=== PATIENT | female | born 1945 | race Caucasian/White ===

== ENCOUNTER → 2017-05-27 13:11 | Outpatient (POV) | payer MEDICARE, SELFPAY | PROVIDERS: Visit Provider Internal Medicine Nephrology | DX: Z00.00 Encounter for general adult medical examination without abnormal findings (principal) ==

== ENCOUNTER → 2017-10-14 14:25 | Outpatient (POV) | payer MEDICARE, SELFPAY | PROVIDERS: Visit Provider Internal Medicine Nephrology | DX: Z00.00 Encounter for general adult medical examination without abnormal findings (principal) ==

== ENCOUNTER 2018-01-22 17:23 | Inpatient (IN) ==
--- NOTE | 2018-01-22 18:36 | Progress Note ---
Internal Medicine - PN: Subj *Date: 01/22/18 *Time: 18:34 Interval history: See H&P from [facility]. Patient with lung carcinoma under radiation treatment is admitted due to not feeling well, and with poor appetite and diarrhea. Seems to be dehydrated. Exam Vital signs and Labs for Last 24 Hours: Temp Pulse Resp BP Pulse Ox 98.1 F 79 20 133/55 98 01/22/18 17:58 01/22/18 17:58 01/22/18 17:58 01/22/18 17:58 01/22/18 17:58 I & O for Last 24 hours: Intake & Output 01/20/18 01/21/18 01/22/18 01/23/18 11:59 11:59 11:59 11:59 Weight 112 lb 7 oz Assessment and Plan (1) Dehydration Current visit: Yes Status: Acute Category: Medical Code(s): E86.0 - Dehydration (2) Lung cancer Current visit: Yes Status: Acute Category: Medical Code(s): C34.90 - Malignant neoplasm of unspecified part of unspecified bronchus or lung (3) Renal insufficiency Current visit: Yes Status: Acute Category: Medical Code(s): N28.9 - Disorder of kidney and ureter, unspecified - Assessment and plan all Dx Assessment and Plan for all problems:: See orders. IV fluids.
[2018-01-22 18:46] LABS: Basophils % 0.4 % (0.1-2.0); Eosinophils % 0.2 % (0.1-12.0); Hematocrit 33.3 % (37.0-47.0); Lymphocytes # 1.7 K/mm3 (0.7-4.5); Mean Corpuscular HGB Conc 30.1 g/dL (31.8-35.4); Mean Corpuscular Hemoglobin 30.9 pg (27.0-31.2); Mean Corpuscular Volume 102.6 fl (81-99); Mean Platelet Volume 7.8 fl (7.4-10.4); Monocytes # 0.7 K/mm3 (0.1-1.0); Monocytes % 7.4 % (1.7-9.3); Platelet Count 405 K/mm3 (142-424); Red Blood Count 3.25 M/mm3 (4.20-5.40); Red Cell Distribution Width 16.2 % (11.5-17.5); White Blood Count 9.4 K/mm3 (4.8-10.8)
[2018-01-22 19:08] LABS: Albumin Level 3.1 gm/dL (3.4-5.0); Albumin/Globulin Ratio 0.6 (1.1-1.8); Anion Gap 22.4 mEq/L (5-15); Bilirubin,Total 0.3 mg/dL (0.2-1.0); Calcium 7.7 mg/dL (8.5-10.1); Globulin 4.9 gm/dl (1.3-3.2); Potassium 3.4 mmoL/L (3.5-5.1); Thyroid Stimulating Hormone 1.01 uIU/ml (0.358-3.740)
--- NOTE | 2018-01-22 19:40 | Progress Note ---
Internal Medicine - PN: Subj *Date: 01/22/18 *Time: 19:38 Interval history: The patient is in acute upon chronic renal failure with markedly elevated BUN and creatinine. Exam Vital signs and Labs for Last 24 Hours: Temp Pulse Resp BP Pulse Ox 98.1 F 79 20 133/55 98 01/22/18 17:58 01/22/18 17:58 01/22/18 17:58 01/22/18 17:58 01/22/18 17:58 Laboratory Results - last 24 hr 01/22/18 18:15: WBC 9.4, RBC 3.25 L, Hgb 10.0 L, Hct 33.3 L, MCV 102.6 H, MCH 30.9, MCHC 30.1 L, RDW 16.2, Plt Count 405, MPV 7.8, Neut % (Auto) 74.0, Lymph % (Auto) 18.0, [place] % (Auto) 7.4, Eos % (Auto) 0.2, Baso % (Auto) 0.4, Neut # (Auto) 7.0, Lymph # (Auto) 1.7, [place] # (Auto) 0.7, Eos # (Auto) 0.0, Baso # (Auto) 0.0 01/22/18 18:15: Sodium 128 L, Potassium 3.4 L, Chloride 100, Carbon Dioxide 9 L* , Anion Gap 22.4 H, BUN 129 H*, Creatinine 10.49 H, Estimated Creat Clear 4, Estimated GFR 4 L*, Est GFR ( Amer) 4 L*, Glucose 119 H, Calcium 7.7 L, Total Bilirubin 0.3, AST 10 L, ALT 13, Alkaline Phosphatase 145 H, Total Protein 8.0, Albumin 3.1 L, Globulin 4.9 H, Albumin/Globulin Ratio 0.6 L, TSH 1.01 Laboratory Tests 01/22/18 01/22/18 18:15 18:15 WBC 9.4 Hgb 10.0 L Hct 33.3 L Sodium 128 L Potassium 3.4 L Chloride 100 Carbon Dioxide 9 L* Anion Gap 22.4 H BUN 129 H* Creatinine 10.49 H I & O for Last 24 hours: Intake & Output 01/20/18 01/21/18 01/22/18 01/23/18 11:59 11:59 11:59 11:59 Weight 112 lb 7 oz Assessment and Plan (1) Dehydration Current visit: Yes Status: Acute Category: Medical Code(s): E86.0 - Dehydration (2) Lung cancer Current visit: Yes Status: Acute Category: Medical Code(s): C34.90 - Malignant neoplasm of unspecified part of unspecified bronchus or lung (3) Renal insufficiency Current visit: Yes Status: Acute Category: Medical Code(s): N28.9 - Disorder of kidney and ureter, unspecified (4) Renal failure (ARF), acute on chronic Current visit: Yes Status: Acute Category: Medical Code(s): N17.9 - Acute kidney failure, unspecified; N18.9 - Chronic kidney disease, unspecified - Assessment and plan all Dx Assessment and Plan for all problems:: She has been followed by Dr. Rodriguez. We will contact him tomorrow regarding her renal status.
[2018-01-23 07:17] LABS: Basophils % 0.3 % (0.1-2.0); Eosinophils # 0.1 K/mm3 (0.0-0.4); Eosinophils % 0.6 % (0.1-12.0); Lymphocytes # 1.1 K/mm3 (0.7-4.5); Lymphocytes % 12.6 K/mm3 (10-50); Mean Corpuscular HGB Conc 29.8 g/dL (31.8-35.4); Mean Corpuscular Hemoglobin 31.1 pg (27.0-31.2); Mean Corpuscular Volume 104.5 fl (81-99); Mean Platelet Volume 7.7 fl (7.4-10.4); Monocytes # 0.7 K/mm3 (0.1-1.0); Monocytes % 7.5 % (1.7-9.3); Neutrophils # 7.1 K/mm3 (1.8-7.8); Platelet Count 319 K/mm3 (142-424); Red Blood Count 2.87 M/mm3 (4.20-5.40); Red Cell Distribution Width 16.3 % (11.5-17.5)
--- NOTE | 2018-01-23 07:36 | Pharmacy Consult Notes ---
[facility] Pharmacy VTE Monitoring - Patient Demographics Admission date: 01/23/18 Report Date: 01/23/18 Time: 07:35 Allergies/Adverse Reactions: Patient Allergies No Known Allergies Allergy (Verified 10/28/17 09:10) Height: 1.65 m Weight: 51.001 kg Patient Problems: Current Active Problems Dehydration (Acute) Lung cancer (Acute) Renal insufficiency (Acute) Renal failure (ARF), acute on chronic (Acute) - VTE Risk Labs: VTE Related Lab Results Hgb 9.0 g/dL (12.2-16.2) L 01/23/18 06:48 Hct 30.0 % (37.0-47.0) L 01/23/18 06:48 Plt Count 319 K/mm3 (142-424) 01/23/18 06:48 BUN 129 mg/dL (7-18) H* 01/22/18 18:15 Creatinine 10.49 mg/dL (0.55-1.02) H 01/22/18 18:15 Estimated Creat Clear 4 mL/min (0-300) 01/22/18 18:15 Was VTE Risk Assessment Performed: Yes VTE Score: 3 VTE Risk Level: Low Risk Clinical Trial Participant: No - Prophylaxis VTE Prophylaxis Ordered?: Yes Types of VTE Prophylaxis: TEDS Knee High
[2018-01-23 07:40] LABS: Anion Gap 28.5 mEq/L (5-15); Calcium 7.4 mg/dL (8.5-10.1); Potassium 3.5 mmoL/L (3.5-5.1)
--- NOTE | 2018-01-23 08:13 | Progress Note ---
Internal Medicine - PN: Subj *Date: 01/23/18 *Time: 08:11 Interval history: Patient states she feels no better today. She is still very weak and tired. She was trying to have a bowel movement at the time of exam. Nursing states her urine output has decreased. They state she is only having approximately 50 cc of output at a time. Exam Vital signs and Labs for Last 24 Hours: Temp Pulse Resp BP Pulse Ox 97.6 F 88 14 141/66 98 01/23/18 04:00 01/23/18 04:00 01/23/18 04:00 01/23/18 04:00 01/23/18 04:00 Laboratory Results - last 24 hr 01/22/18 18:15: WBC 9.4, RBC 3.25 L, Hgb 10.0 L, Hct 33.3 L, MCV 102.6 H, MCH 30.9, MCHC 30.1 L, RDW 16.2, Plt Count 405, MPV 7.8, Neut % (Auto) 74.0, Lymph % (Auto) 18.0, Long % (Auto) 7.4, Eos % (Auto) 0.2, Baso % (Auto) 0.4, Neut # (Auto) 7.0, Lymph # (Auto) 1.7, Long # (Auto) 0.7, Eos # (Auto) 0.0, Baso # (Auto) 0.0 01/22/18 18:15: Sodium 128 L, Potassium 3.4 L, Chloride 100, Carbon Dioxide 9 L* , Anion Gap 22.4 H, BUN 129 H*, Creatinine 10.49 H, Estimated Creat Clear 4, Estimated GFR 4 L*, Est GFR ( Amer) 4 L*, Glucose 119 H, Calcium 7.7 L, Total Bilirubin 0.3, AST 10 L, ALT 13, Alkaline Phosphatase 145 H, Total Protein 8.0, Albumin 3.1 L, Globulin 4.9 H, Albumin/Globulin Ratio 0.6 L, TSH 1.01 01/23/18 06:48: WBC 9.0, RBC 2.87 L, Hgb 9.0 L, Hct 30.0 L, MCV 104.5 H, MCH 31.1, MCHC 29.8 L, RDW 16.3, Plt Count 319, MPV 7.7, Neut % (Auto) 79.0, Lymph % (Auto) 12.6, Long % (Auto) 7.5, Eos % (Auto) 0.6, Baso % (Auto) 0.3, Neut # (Auto) 7.1, Lymph # (Auto) 1.1, Long # (Auto) 0.7, Eos # (Auto) 0.1, Baso # (Auto) 0.0 I & O for Last 24 hours: Intake & Output 01/20/18 01/21/18 01/22/18 01/23/18 11:59 11:59 11:59 11:59 Intake Total 1297 / 1297 Output Total 250 / 250 Balance 1047 / 1047 Weight 112 lb 7 oz - Constitutional Comments: Does not appear to feel well - *Routine Respiratory Exam Present: rales (bilateral bases) - *Routine Cardiovascular Exam Present: irregular rhythm - *Routine Abdominal Exam Present: soft, normoactive bowel sounds. Absent: tenderness - *Routine Extremities Exam Absent: cyanosis, clubbing, edema Assessment and Plan (1) Dehydration Current visit: Yes Status: Acute Category: Medical Code(s): E86.0 - Dehydration (2) Lung cancer Current visit: Yes Status: Acute Category: Medical Code(s): C34.90 - Malignant neoplasm of unspecified part of unspecified bronchus or lung (3) Renal insufficiency Current visit: Yes Status: Acute Category: Medical Code(s): N28.9 - Disorder of kidney and ureter, unspecified (4) Renal failure (ARF), acute on chronic Current visit: Yes Status: Acute Category: Medical Code(s): N17.9 - Acute kidney failure, unspecified; N18.9 - Chronic kidney disease, unspecified - Assessment and plan all Dx Assessment and Plan for all problems:: Still awaiting renal function tests from this morning. Patient has developed some faint rales in her lung bases. Her fluids are running at 125 an hour. Will await renal tests, but may need to decrease IV fluid rate.
[2018-01-23 12:23] LABS: Appearance,Urine SL CLOUDY (Clear); Bilirubin,Urine Negative (Negative); Blood, Urine 3+ (Negative); Color,Urine YELLOW (Yellow); Glucose,Urine (UA) Negative (Negative); Ketones,Urine Negative (Negative); Leukocyte Esterase,Urine 2+ (Negative); Microscopic, Urine URINE MICROSCOPIC (MICROSCOPIC); Protein,Urine 2+ (Negative); Specific Gravity, Urine 1.015 (1.005-1.030); Urobilinogen,Urine 0.2 EU/dl (0.2)
[2018-01-23 12:37] LABS: Bacteria,Urine 3+ /lpf; WBC,Urine TNTC #/hpf (0-3)
[2018-01-23 15:22] LABS: ABG Base Excess -24.5 mmol/L (-2.4-2.3); ABG HCO3 5.9 mmhg (22.0-26.0); ABG Oxygen Saturation 96 % (90-100); ABG PCO2 21.8 mmhg (35.0-45.0); ABG PO2 96.2 mmhg (80-100); ABG TCO2 6.6 mmhg (23-27)
[2018-01-23 15:24] LABS: Allen's Test ACCEPTABLE; Oxygen ROOM AIR %
[2018-01-23 15:25] LABS: ABG PH 7.05 mmol/L (7.35-7.45)
--- NOTE | 2018-01-23 15:53 | Progress Note ---
Internal Medicine - PN: Subj *Date: 01/23/18 *Time: 15:50 Interval history: Accepted for transfer to [facility], to Dr. Douglas, Internal Medicine. This after discussion with Dr. Reyes, nephrology. She will need dialysis. Exam Vital signs and Labs for Last 24 Hours: Temp Pulse Resp BP Pulse Ox 99.9 F H 90 20 145/54 93 L 01/23/18 08:00 01/23/18 15:05 01/23/18 08:00 01/23/18 08:00 01/23/18 08:00 Laboratory Results - last 24 hr 01/22/18 18:15: WBC 9.4, RBC 3.25 L, Hgb 10.0 L, Hct 33.3 L, MCV 102.6 H, MCH 30.9, MCHC 30.1 L, RDW 16.2, Plt Count 405, MPV 7.8, Neut % (Auto) 74.0, Lymph % (Auto) 18.0, [place] % (Auto) 7.4, Eos % (Auto) 0.2, Baso % (Auto) 0.4, Neut # (Auto) 7.0, Lymph # (Auto) 1.7, [place] # (Auto) 0.7, Eos # (Auto) 0.0, Baso # (Auto) 0.0 01/22/18 18:15: Sodium 128 L, Potassium 3.4 L, Chloride 100, Carbon Dioxide 9 L* , Anion Gap 22.4 H, BUN 129 H*, Creatinine 10.49 H, Estimated Creat Clear 4, Estimated GFR 4 L*, Est GFR ( Amer) 4 L*, Glucose 119 H, Calcium 7.7 L, Total Bilirubin 0.3, AST 10 L, ALT 13, Alkaline Phosphatase 145 H, Total Protein 8.0, Albumin 3.1 L, Globulin 4.9 H, Albumin/Globulin Ratio 0.6 L, TSH 1.01 01/23/18 06:48: WBC 9.0, RBC 2.87 L, Hgb 9.0 L, Hct 30.0 L, MCV 104.5 H, MCH 31.1, MCHC 29.8 L, RDW 16.3, Plt Count 319, MPV 7.7, Neut % (Auto) 79.0, Lymph % (Auto) 12.6, [place] % (Auto) 7.5, Eos % (Auto) 0.6, Baso % (Auto) 0.3, Neut # (Auto) 7.1, Lymph # (Auto) 1.1, [place] # (Auto) 0.7, Eos # (Auto) 0.1, Baso # (Auto) 0.0 01/23/18 06:48: Sodium 136, Potassium 3.5, Chloride 105, Carbon Dioxide 6 L* D, Anion Gap 28.5 H, BUN 122 H*, Creatinine 10.06 H, Estimated Creat Clear 4, Estimated GFR 4 L*, Est GFR ( Amer) 5 L* D, Glucose 79 D, Calcium 7.4 L 01/23/18 11:15: Urine Color Yellow, Urine Appearance Sl cloudy, Urine pH 6.0, Ur Specific [place] 1.015, Urine Protein 2+, Urine Glucose (UA) Negative, Urine Ketones Negative, Urine Blood 3+, Urine Nitrate Positive, Urine Bilirubin Negative, Urine Urobilinogen 0.2, Ur Leukocyte Esterase 2+ A, Urine RBC 5-10, Urine WBC Tntc, Ur Squamous Epith Cells None, Urine Bacteria 3+ 01/23/18 15:10: Specimen Source R radial, O2 % Room air, ABG pH 7.05 L*, ABG pCO2 21.8 L, ABG pO2 96.2, ABG HCO3 5.9 L, ABG Total CO2 6.6 L, ABG O2 Saturation 96, ABG Base Excess -24.5 L, Alvin Test Acceptable I & O for Last 24 hours: Intake & Output 01/21/18 01/22/18 01/23/18 01/24/18 11:59 11:59 11:59 11:59 Intake Total 1777 / 1777 360 / 360 Output Total 300 / 300 Balance 1477 / 1477 360 / 360 Weight 112 lb 7 oz Assessment and Plan (1) Dehydration Current visit: Yes Status: Acute Category: Medical Code(s): E86.0 - Dehydration (2) Lung cancer Current visit: Yes Status: Acute Category: Medical Code(s): C34.90 - Malignant neoplasm of unspecified part of unspecified bronchus or lung (3) Renal insufficiency Current visit: Yes Status: Acute Category: Medical Code(s): N28.9 - Disorder of kidney and ureter, unspecified (4) Renal failure (ARF), acute on chronic Current visit: Yes Status: Acute Category: Medical Code(s): N17.9 - Acute kidney failure, unspecified; N18.9 - Chronic kidney disease, unspecified - Assessment and plan all Dx Assessment and Plan for all problems:: transfer to [facility]
--- NOTE | 2018-01-26 09:05 | Discharge Summary ---
General - General Admission date:: 01/22/18 Discharge date: 01/23/18 HPI HPI: Ms. Patel is a 72 yo female with a hx of lung carcinoma who is currently under radiation treatment. She presented to the office of [facility] due to not feeling well with poor appetite and diarrhea. She seemed to be dehydrated and was admitted for further evaluation and treatment. She was started on IVF's. Hospital Course Hospital Course: The patient's labs returned showing acute on chronic renal failure with markedly elevated BUN and creatinine. Her creatinine was 10.49 upon admission and only went down to 10.[address] Cardona contacted [facility], Dr. Douglas of Internal Medicine. He accepted the patient. He also spoke with Dr. Reyes, nephrology. The patient was transferred and will need dialysis. Objective Vital signs: Temp Pulse Resp BP Pulse Ox 98.5 F 100 H 18 147/66 98 01/23/18 20:19 01/23/18 20:19 01/23/18 20:19 01/23/18 20:19 01/23/18 20:00 Narrative: - Constitutional Comments: Does not appear to feel well - *Routine Respiratory Exam Present: rales (bilateral bases) - *Routine Cardiovascular Exam Present: irregular rhythm - *Routine Abdominal Exam Present: soft, normoactive bowel sounds. Absent: tenderness - *Routine Extremities Exam Absent: cyanosis, clubbing, edema Results Labs on day of discharge: Preliminary micro results at discharge 01/23/18 11:15 Urine Culture - Preliminary Urine,Catheterized Gram Negative Rods DS: Diagnosis - Discharge Diagnosis (1) Dehydration Status: Acute (2) Lung cancer Status: Acute (3) Renal insufficiency Status: Acute (4) Renal failure (ARF), acute on chronic Status: Acute Discharge Plan - Patient Discharge Instructions ACTIVITY: Other DIET: other Patient Instructions: Kidney Failure Forms: Transfer Record - Follow up Plan Disposition: Xfer Short-Term Hosp Prescriptions/Medication Reconciliation: Discontinued diltiazem ER 120 mg capsule,24 hr,extended release 120 mg PO QAM clonazepam 1 mg tablet 0.5 mg PO BID omeprazole magnesium 20 mg tablet,delayed release 20 mg PO DAILY primidone 50 mg tablet 50 mg PO DAILY quetiapine 50 mg tablet 25 mg PO HS sertraline 50 mg tablet 50 mg PO Q24H Fluticasone Propionate [Flonase 50mcg nasal spray 16gm] 1 spr NS DAILY Metoclopramide HCl [Reglan 5mg Tablet] 5 mg PO TID Multivitamin [Multivitamins] 1 each PO DAILY Cyanocobalamin (Vitamin B-12) [Vitamin B12 5mg Tab] 5,000 mcg PO DAILY Cholecalciferol (Vitamin D3) [Vitamin D3 1,000 Unit Tab] 4,000 unit PO DAILY Albuterol Sulfate [Proair Hfa 90mcg/puff Inh] 2 puffs IH QID
== END 2018-01-23 22:01 | disposition short-term general hospital (02) ==
LOC: 2ND → OBSVTOIN 17:23
PROVIDERS: ADMIT Family Medicine; ATTEND Family Medicine

== ENCOUNTER → 2018-03-27 08:47 | Outpatient (CLI) | payer MEDICARE, SELFPAY ==
--- NOTE | 2018-03-27 08:54 | CI_ITS ---
Cerebrovascular Exam Indications: 785.9 Bruit. IMPRESSIONS 1. The bilateral vertebral arteries are patent with normal antegrade flow. 2. Study suggests 20-49% stenosis involving the right internal carotid artery and the left internal carotid artery. 3. Study suggests >60% stenosis involving the right external carotid artery. History: Memory loss and aphasia. Risk factors: Hypertension. Carotid duplex study. Complete study and Doppler flow study including spectral analysis, color and bassett scale imaging. Height: Height: 165.1cm. Height: 65in. Weight: Weight: 53.1kg. Weight: 116.8lb. Body mass index: BMI: 19.5kg/m^2. Body surface area: BSA: 1.55m^2. Location: Vascular laboratory. Patient status: Outpatient. Tables: Arterial flow: + +--------+--------+ Location V sys V ed + +--------+--------+ Right CCA - proximal 103cm/s 14.1cm/s + +--------+--------+ Right CCA - distal 66.6cm/s 15.7cm/s + +--------+--------+ Right ECA 191cm/s -------- + +--------+--------+ Right ICA - proximal 58.9cm/s 16.6cm/s + +--------+--------+ Right ICA - mid 85.6cm/s 26.2cm/s + +--------+--------+ Right ICA - distal 99.8cm/s 20.4cm/s + +--------+--------+ Right vertebral 43.6cm/s -------- + +--------+--------+ Left CCA - proximal 103cm/s 11.6cm/s + +--------+--------+ Left CCA - distal 83.3cm/s 11.6cm/s + +--------+--------+ Left ECA 104cm/s -------- + +--------+--------+ Left ICA - proximal 89.9cm/s 13.8cm/s + +--------+--------+ Left ICA - mid 107cm/s 18.9cm/s + +--------+--------+ Left ICA - distal 90.5cm/s 23.3cm/s + +--------+--------+ Left vertebral 41.6cm/s -------- + +--------+--------+ Velocity ratios: + + + + + + Right, V sys Right, V ed Left, V sys Left, V ed + + + + + + Max ICA/dist CCA 1.5 1.67 1.28 2.01 + + + + + + (Report amended ) Electronically signed by: Alvin Izquierdo [id number]
== END ==
PROVIDERS: PCP Family Medicine; Visit Provider Family Medicine
DX: R09.89 Other specified symptoms and signs involving the circulatory and respiratory systems (principal)
CPT/HCPCS: 93880

== ENCOUNTER → 2019-01-06 15:30 | Outpatient (CLI) | payer MEDICARE, SELFPAY ==
--- NOTE | 2019-01-06 15:41 | XR_ITS ---
PROCEDURE: XR HAND RT MIN 3V CLINICAL INDICATION: RT HAND INJURY,SWELLING COMPARISON: No exams were available for comparison FINDINGS: No obvious fracture or dislocation. Soft tissue swelling is present dorsally at the distal metacarpal region. There are mild osteoarthritic changes of the 1st metacarpophalangeal joint and the DIP joints. A periarticular lucency is present along the distal and radial aspect of the proximal phalanx of the 4th finger. Other findings:Triangular fibrocartilage calcification IMPRESSION: 1. No acute fracture. 2. Osteoarthritic change. 3. Periarticular lucency of the proximal phalanx of the 4th finger nonspecific but could be seen with rheumatoid arthritis. Dictated by: Alvin Izquierdo MD 01/06/2019 16:22 Electronically signed by Alvin Izquierdo MD in [place] 01/06/2019 16:22
== END ==
PROVIDERS: PCP Family Medicine; Visit Provider Family Medicine
DX: S69.91XA Unspecified injury of right wrist, hand and finger(s), initial encounter (principal)
CPT/HCPCS: 73130

== ENCOUNTER → 2019-04-15 16:42 | Outpatient (CLI) | payer MEDICARE, SELFPAY ==
--- NOTE | 2019-04-15 16:48 | XR_ITS ---
PROCEDURE: XR CHEST 2V CLINICAL HISTORY: CHRONIC OBSTRUCTIVE PULMONARY DISEASE COPD, shortness of breath COMPARISON: CXR2V XR chest 2V from 01/23/2018 FINDINGS: There is mild cardiomegaly without failure. There is mild hyperinflation consistent with COPD. No lobar consolidation or collapse is evident. There is generalized osteopenia with mild wedging involving L1 and T7 which appears similar compared to the previous exam. IMPRESSION: COPD. No change with no acute finding Dictated by: Alvin Izquierdo MD 04/15/2019 17:12 Electronically signed by Alvin Izquierdo MD in [facility] 04/15/2019 17:12
== END ==
PROVIDERS: PCP Family Medicine; Visit Provider Family Medicine
DX: J44.9 Chronic obstructive pulmonary disease, unspecified (principal)
CPT/HCPCS: 71046

== ENCOUNTER → 2019-12-16 10:33 | Outpatient (CLI) | payer MEDICARE, SELFPAY ==
--- NOTE | 2019-12-16 10:37 | XR_ITS ---
PROCEDURE: XR CHEST 2V CLINICAL HISTORY: COPD, UNSPECIFIED COMPARISON: CR CXR2V XR chest 2V from 01/23/2018 CR XR CHEST 2V from 04/15/2019 FINDINGS: There is mild cardiomegaly without failure. There is a patchy area of increased density in the right upper lobe laterally which may be due to an area of infiltrate or contusion. The patient reports having recent CPR. There is a small right pleural effusion. Mild wedge compression changes are present involving T8 not significantly changed. Changes of COPD noted. No acute bony abnormalities. IMPRESSION: Chronic changes. Patchy infiltrate in the right upper lobe laterally versus contusion with small right effusion. Dictated by: Alvin Izquierdo MD 12/16/2019 12:25 Alvin Izquierdo MD in [facility] 12/16/2019 12:25
== END ==
LOC: RAD 10:34
PROVIDERS: PCP Family Medicine; Visit Provider Family Medicine
DX: J44.9 Chronic obstructive pulmonary disease, unspecified (principal)
CPT/HCPCS: 71046

== ENCOUNTER → 2020-01-18 12:54 | Outpatient (CLI) | payer MEDICARE, SELFPAY ==
--- NOTE | 2020-01-18 13:00 | XR_ITS ---
PROCEDURE: XR CHEST 2V CLINICAL HISTORY: COPD Shortness of air, smoker history COMPARISON: CR CXR2V XR chest 2V from 01/23/2018 CR XR CHEST 2V from 04/15/2019 DX XR CHEST 2V from 12/16/2019 FINDINGS: Mild cardiomegaly without failure. COPD with chronic coarsening of the bronchovascular markings. There is a small right effusion with atelectasis or infiltrate in the right lung base which appears slightly worse. Atelectatic changes or infiltrate also noted in the right upper lobe laterally also slightly worse. There is trace left-sided effusion. There is biapical pleural thickening No acute bony abnormalities. IMPRESSION: Right lower lobe infiltrate with effusion and right upper lobe infiltrate both slightly worse Dictated by: Alvin Izquierdo MD 01/18/2020 14:16 Alvin Izquierdo MD in [facility] 01/18/2020 14:16
== END ==
PROVIDERS: PCP Family Medicine; Visit Provider Family Medicine
DX: J44.9 Chronic obstructive pulmonary disease, unspecified (principal)
CPT/HCPCS: 71046

== ENCOUNTER → 2020-01-27 12:21 | Outpatient (CLI) | payer MEDICARE, SELFPAY ==
--- NOTE | 2020-01-27 12:26 | XR_ITS ---
PROCEDURE: XR CHEST 2V CLINICAL HISTORY: ABN CXR Follow-up pneumonia COMPARISON: CR XR CHEST 2V from 04/15/2019 DX XR CHEST 2V from 12/16/2019 CR XR CHEST 2V from 01/18/2020 FINDINGS: There is cardiomegaly without failure. There is a medium-sized right pleural effusion and a small left pleural effusion. Patchy density is present in the left upper lobe laterally and there is an area of consolidation in the right upper lobe laterally. These findings are slightly worse on the left. There is mild wedging of T8 unchanged. IMPRESSION: Enlarging right pleural effusion with small left pleural effusion and left upper lobe and right upper lobe pneumonia. Dictated by: Alvin Izquierdo MD 01/27/2020 14:26 Alvin Izquierdo MD in [facility] 01/27/2020 14:26
== END ==
PROVIDERS: PCP Family Medicine; Visit Provider Family Medicine
DX: R93.89 Abnormal findings on diagnostic imaging of other specified body structures (principal)
CPT/HCPCS: 71046

== ENCOUNTER → 2020-02-24 12:27 | Outpatient (CLI) | payer MEDICARE, SELFPAY ==
--- NOTE | 2020-02-24 12:35 | XR_ITS ---
PROCEDURE: XR CHEST 2V CLINICAL HISTORY: PLEURAL EFFUSION Follow-up pneumonia COMPARISON: DX XR CHEST 2V from 12/16/2019 CR XR CHEST 2V from 01/18/2020 CR XR CHEST 2V from 01/27/2020 FINDINGS: Mild cardiomegaly without failure. Medium-sized right effusion once again noted and appears somewhat larger on the frontal view. Consolidation once again noted in the right midlung laterally not significantly changed. The left lung remains clear.. On the lateral view there is increasing opacification in the lower chest anteriorly and in the hilar region. There is mild wedging of L1 not significantly changed IMPRESSION: Persistent small to medium-sized right effusion with right lower lobe atelectasis or consolidation. The Persistent right upper lobe pneumonia. There is increasing density overlying the anterior hemithorax on the lateral view which could be related to worsening loculated effusion or consolidation. CT may provide further evaluation. Dictated by: Alvin Izquierdo MD 02/24/2020 13:28 Alvin Izquierdo MD in [facility] 02/24/2020 13:28
== END ==
PROVIDERS: PCP Family Medicine; Visit Provider Family Medicine
DX: J90 Pleural effusion, not elsewhere classified (principal)
CPT/HCPCS: 71046